=== PATIENT | male | born 1980 | race Caucasian/White ===

== ENCOUNTER 2020-09-20 22:55 | Emergency (ER) | payer OTHER ==
[2020-09-20] MEDS ORDERED: Boostrix 0.5 ML (Tdap) VIAL ONE (23:08)
[2020-09-20] MEDS ORDERED: Lidocaine 1% PF 5 ML VIAL ONE (23:49)
== END 2020-09-21 01:28 | disposition home or self-care (01) ==
LOC: ERS 22:55
DX: S01.01XA Laceration without foreign body of scalp, initial encounter (principal); S80.11XA Contusion of right lower leg, initial encounter; V89.2XXA Person injured in unspecified motor-vehicle accident, traffic, initial encounter
CPT/HCPCS: 12035; 70450; 90471; 90715

== ENCOUNTER 2020-09-27 11:43 | Emergency (ER) | payer SELFPAY | END 2020-09-27 13:38 | disposition home or self-care (01) | LOC: ERS 11:43 | DX: S01.01XD Laceration without foreign body of scalp, subsequent encounter (principal); S01.81XD Laceration without foreign body of other part of head, subsequent encounter ==